=== PATIENT | female | born 1995 | race Caucasian/White ===

== ENCOUNTER 2018-05-27 17:31 | Emergency (ER) | payer OTHER ==
[~2018-05-27] VITALS: Ht 157.5 cm; Wt 90.0 kg
[~2018-05-27 17:31] MED LIST: CEPH-443 PO; HYDR-4011 PO; IBUP-1542 PO
[2018-05-27 17:33] VITALS: Ht 157.5 cm; Wt 90.0 kg
[2018-05-27] MEDS ORDERED: HYDROCODONE/APAP (5/325) TAB PO ONE (20:30)
[2018-05-27] MEDS ORDERED: ACET325T33 PO (21:55)
[2018-05-27] MEDS ORDERED: NAPR-688 PO (21:55)
[2018-05-27 21:56] VITALS: BP 125/62; PULSE 98; RESP 18
--- NOTE | 2018-05-28 01:06 | ERD ---
ER Documentation Chief Complaint Chief Complaint LEFT KNEE PAIN X 3 DAYS. DENIES ANY INJURY. STATES "FEELS IT CRACKING" HPI 22-year-old female presents to the emergency department complaining of moderate to severe left knee pain for the past 3 days. Patient states the pain is in a certain movements. She denies any injury states that it happened suddenly. She states that she does hear cracks. She denies any fevers, patient states that she has taken ibuprofen 800 mg without relief ROS All systems reviewed and are negative except as per history of present illness. Medications Home Meds Active Scripts Acetaminophen* (Tylenol*) 325 Mg Tablet, 2 TAB PO Q6 PRN for PAIN AND OR ELEVATED TEMP, #30 TAB Prov:KRISTOFER SPARROW PA-C 05/27/18 Naproxen* (Naproxen*) 500 Mg Tablet, 500 MG PO BID, #30 TAB Prov:KRISTOFER SPARROW PA-C 05/27/18 Ibuprofen* (Motrin*) 600 Mg Tab, 600 MG PO Q6, #20 TAB Prov:SUMAN STERN MD 03/19/16 Hydrocodone/Acetaminophen ([place] 5-325 Tablet) 1 Each Tablet, 1 TAB PO Q6H PRN for PAIN, #15 TAB Prov:SUMAN STERN MD 03/19/16 Cephalexin* (Keflex*) 500 Mg Capsule, 500 MG PO Q6 for 5 Days, CAP Prov:TANNA REYES NP 12/20/14 Ibuprofen* (Motrin*) 600 Mg Tab, 600 MG PO Q6H PRN for PAIN AND OR ELEVATED TEMP, #30 Prov:TANNA REYES NP 12/20/14 Allergies Allergies: Uncoded Allergies: STEROIDS (Allergy, Unknown, 05/27/18) PMhx/Soc History of Surgery: No Anesthesia Reaction: No Hx Neurological Disorder: Yes (MIGRAINE HEADACHES) Hx Respiratory Disorders: Yes (ASTHMA) Hx Cardiac Disorders: No Hx Psychiatric Problems: No Hx Miscellaneous Medical Probl: No Hx Alcohol Use: No Hx Substance Use: No Hx Tobacco Use: No Smoking Status: Never smoker Physical Exam Vitals Vital Signs Date Temp Pulse Resp B/P (MAP) Pulse Ox O2 O2 Flow FiO2 Time Delivery Rate 05/27/18 98.2 98 18 125/62 100 Room Air 21:56 (83) 05/27/18 97.8 116 17 131/84 99 17:33 (100) Physical Exam Const: No acute distress Head: Atraumatic Eyes: Normal Conjunctiva ENT: Normal External Ears, Nose and Mouth. Neck: Full range of motion. No meningismus. Resp: Clear to auscultation bilaterally Cardio: Regular rate and rhythm, no murmurs Abd: Soft, non tender, non distended. Normal bowel sounds Skin: No petechiae or rashes Back: No midline or flank tenderness Ext: N tender palpation surrounding the prepatellar left knee. Patient had full range of motion. No calf tenderness Neur: Awake and alert Psych: Normal Mood and Affect Results 24 hrs Current Medications Medications Dose Sig/Greg Start Time Status Last (Trade) Ordered Route PRN Stop Time Admin Dose Reason Admin 1 tab ONCE ONCE 05/27/18 DC 05/27/18 Acetaminophen PO 20:30 20:24 / 05/27/18 20:31 Hydrocodone Bitart ([place] (5/325)) Procedures/MDM This is a 22-year-old female presenting to the emergency department with left knee pain. No evidence of any fractures or dislocations. Low suspicion for septic arthritis, patient is afebrile and well-appearing. She had full range of motion of her left knee. I discussed with patient that she will need to see orthopedist to follow-up to get a MRI. She was placed in the immobilizer and given crutches. Return precautions were given she understands agrees this plan Departure Diagnosis: Primary Impression: Knee pain Additional Impression: Headache Condition: Stable Patient Instructions: What Are Migraine and Tension Headaches?, Self-Care for Headaches, The Kneecap (Patella) and Knee Joint, Knee Pain, Uncertain Cause Referrals: COMMUNITY CLINICS YOU HAVE RECEIVED A MEDICAL SCREENING EXAM AND THE RESULTS INDICATE THAT YOU DO NOT HAVE A CONDITION THAT REQUIRES URGENT TREATMENT IN THE EMERGENCY DEPARTMENT. FURTHER EVALUATION AND TREATMENT OF YOUR CONDITION CAN WAIT UNTIL YOU ARE SEEN IN YOUR DOCTORS OFFICE WITHIN THE NEXT 1-2 DAYS. IT IS YOUR RESPONSIBILITY TO MAKE AN APPOINTMENT FOR FOLOW-UP CARE. IF YOU HAVE A PRIMARY DOCTOR --you should call your primary doctor and schedule an appointment IF YOU DO NOT HAVE A PRIMARY DOCTOR YOU CAN CALL OUR PHYSICIAN REFERRAL HOTLINE AT IF YOU CAN NOT AFFORD TO SEE A PHYSICIAN YOU CAN CHOSE FROM THE FOLLOWING COMMUNITY CLINICS [facility] [address] [facility] [address] [facility] [address] [facility] [facility] [address] [facility] [facility] [address] [facility] [facility] [address] [facility]. [facility]) Usted se izaguirre hecho un examen mdico de control que le indica que no est en michelle condicin que requiera tratamiento urgente en el Departamento de Emergencia. Un estudio ms profundo y el tratamiento de mccabe condicin pueden esperar sin ningn riesgo hasta que usted sea atendida/o en el consultorio de mccabe mdico o michelle clnica. Es responsabilidad suya arreglar michelle neisha para el seguimiento del indy. MANEJO DE CONDICIONES NO URGENTES EN EL FUTURO 1) Si usted tiene un mdico de atencin primaria: Usted debera llamar a mccabe mdico de atencin primaria antes de venir al departamento de emergencia. Despus de las horas de consultorio, mccabe doctor o mccabe asociado/a est disponible por telfono. El mdico o enfermero de juan en el servicio telefnico puede asesorarle por yuli medio para atender el problema, o indy contrario se puede programar michelle neisha. 2) Si usted no tiene un mdico de atencin primaria: Llame al mdico o clnica de referencia que aparece abajo verona las horas de consultorio para hacer michelle neisha para que le vean. CLINICAS: [facility] [phone] [facility] [phone] [facility] [phone] [facility] [phone] [facility] [phone] [facility] [phone] [address] Additional Instructions: Please follow up with a primary care physician to get a referral for neurologist and orthopedist. Take all medicines as directed. Return to this facility if you are not improving as expected. KRISTOFER SPARROW PA-C May 28, 2018 01:06
== END 2018-05-27 22:12 | disposition home or self-care (01) ==
LOC: FTE 17:31
DX: M25.562 Pain in left knee (principal); R51 Headache; J45.909 Unspecified asthma, uncomplicated
CPT/HCPCS: 29505; 73562; Z7502; Z7610